=== PATIENT | male | born 1995 | race Caucasian/White ===

== ENCOUNTER 2024-03-07 13:56 | Outpatient (REF) | payer BC, SELFPAY ==
[2024-03-07 14:06] LABS: MANUAL DIFF FLAG NO
[2024-03-07 14:10] LABS: Basophils Absolute Auto 0.1 X10*3/uL (0.0-0.2); Basophils Percent Auto 1.2 % (0-2); Eosinophils Absolute Auto 0.2 X10*3/uL (0.0-0.4); Eosinophils Percent Auto 3.7 % (0-4); Hematocrit 42.5 % (42.0-52.0); Hemoglobin 14.7 g/dl (14.0-18.0); Imm Gran Abs Auto 0.01 X10*3/uL (0.00-0.03); Imm Gran Pct Auto 0.2 % (0.0-0.4); Lymphocytes Absolute Auto 2.4 X10*3/uL (1.2-4.9); Lymphocytes Percent Auto 40.5 % (20-40); Mean Corpuscular HGB Conc 34.6 g/dl (31.0-36.0); Mean Corpuscular Hemoglobin 30.9 pg (27.0-33.0); Mean Corpuscular Volume 89.3 fL (80.0-98.0); Mean Platelet Volume 10.7 fL (9.4-12.4); Monocytes Absolute Auto 0.6 X10*3/uL (0.1-1.2); Monocytes Percent Auto 10.7 % (2-11); Neutrophils Absolute Auto 2.6 x10*3/uL (2.0-8.3); Neutrophils Percent Auto 43.7 % (45-73); Platelet Count 287 X10*3/uL (160-400); Red Blood Count 4.76 X10*6/uL (4.60-5.80); Red Cell Distribution Width 12.4 % (11.0-16.0); White Blood Count 5.9 X10*3/uL (4.8-10.8)
[2024-03-07 14:13] LABS: Appearance Urine Clear; Color Urine Yellow; Glucose Urine UA Negative (Negative); Leukocyte Esterase Urine Negative (Negative); Nitrite Urine Negative (Negative); Specific Gravity - Urine >= 1.030 (1.005-1.025); Urine Blood Negative (Negative); Urine Ketones Trace mg/dL (Negative); Urine Protein Trace mg/dL (Neg-Trace)
[2024-03-07 14:15] LABS: Bacteria Urine None Seen (None Seen); Hyaline Casts Urine 0-2 /LPF (0-2); RBC Urine 0-2 /HPF (0-2); Squamous Epithelial Cell Urine 0-2 /HPF (0-2); WBC Urine 0-5 /HPF (0-5)
[2024-03-07 14:38] LABS: Alanine Aminotransferase 16 U/L (0-40); Albumin Level 4.8 g/dL (3.5-5.0); Alkaline Phosphatase 64 U/L (39-117); Anion Gap 11 (12-20); Aspartate Amino Transferase 16 U/L (5-37); Bilirubin Total 0.7 mg/dL (0.0-1.0); Blood Urea Nitrogen 15 mg/dL (9-16); Calcium 9.6 mg/dL (8.4-10.2); Carbon Dioxide 27 mmol/L (22-29); Chloride 106 mmol/L (96-108); Cholesterol 152 mg/dL (<200); Estimated Glomerular Filt Rate > 60; Glucose Fasting 97 mg/dL (60-99); HDL Cholesterol 40 mg/dL (>40); LDL Cholesterol Calculated 101 mg/dL (<100); Potassium 4.2 mmol/L (3.3-5.1); Sodium 140 mmol/L (135-145); Total Protein 7.8 g/dL (6.5-8.0); Triglycerides 56 mg/dL (<150)
[2024-03-07 14:51] LABS: TSH reflex Free T4 0.84 uIU/mL (0.32-4.0)
== END 2024-03-07 13:57 | disposition home or self-care (01) ==
LOC: HO.LNP 13:56
PROVIDERS: Visit Provider Internal Medicine
DX: R63.4 Abnormal weight loss (principal)
CPT/HCPCS: 80053; 80061; 81001; 84443; 85025

== ENCOUNTER → 2024-08-29 10:33 | Outpatient (BNVA) | payer OTHER, SELFPAY | PROVIDERS: Visit Provider Registered Nurse | DX: S46.811A Strain of other muscles, fascia and tendons at shoulder and upper arm level, right arm, initial encounter (principal); S39.012A Strain of muscle, fascia and tendon of lower back, initial encounter; V89.0XXA Person injured in unspecified motor-vehicle accident, nontraffic, initial encounter | CPT/HCPCS: 99203 ==

== ENCOUNTER → 2024-09-01 13:07 | Outpatient (BNVA) | payer OTHER, SELFPAY | PROVIDERS: PCP Internal Medicine; Visit Provider Physician Assistant Medical | DX: S46.811A Strain of other muscles, fascia and tendons at shoulder and upper arm level, right arm, initial encounter (principal); S39.012A Strain of muscle, fascia and tendon of lower back, initial encounter; V89.0XXA Person injured in unspecified motor-vehicle accident, nontraffic, initial encounter | CPT/HCPCS: 99213 ==

== ENCOUNTER → 2024-09-06 11:52 | Outpatient (BNVA) | payer OTHER, SELFPAY | PROVIDERS: PCP Internal Medicine; Visit Provider Physician Assistant | DX: S39.012A Strain of muscle, fascia and tendon of lower back, initial encounter (principal); V89.0XXA Person injured in unspecified motor-vehicle accident, nontraffic, initial encounter | CPT/HCPCS: 99214 ==

== ENCOUNTER → 2024-09-21 09:07 | Outpatient (BNVA) | payer OTHER, SELFPAY | PROVIDERS: PCP Internal Medicine; Visit Provider Physician Assistant | DX: S39.012D Strain of muscle, fascia and tendon of lower back, subsequent encounter (principal); V89.0XXD Person injured in unspecified motor-vehicle accident, nontraffic, subsequent encounter | CPT/HCPCS: 99213 ==

== ENCOUNTER → 2024-09-25 11:06 | Outpatient (BNVA) | payer OTHER, SELFPAY | PROVIDERS: PCP Internal Medicine; Visit Provider Physician Assistant Medical | DX: S39.012D Strain of muscle, fascia and tendon of lower back, subsequent encounter (principal); V89.0XXD Person injured in unspecified motor-vehicle accident, nontraffic, subsequent encounter; Z02.79 Encounter for issue of other medical certificate | CPT/HCPCS: 99213 ==

== ENCOUNTER 2024-10-18 09:00 | Outpatient (RCR) | payer OTHER, BC, SELFPAY ==
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
--- NOTE | 2024-09-25 10:56 | MHC.PT.OD ---
[facility] [place] Office [place] Office [place] Office [address]deep [address] [phone] F: [phone] F: [phone] F: [phone] F: [phone] Physical Therapy Daily Note Diagnosis: R TRAPEZIUS STRAIN, R LUMBAR STRAIN Date of Surgery: NA Date of Evaluation: 08/30/24 Date of Treatment: 09/25/24 Treatments to Date: 5 Cancellations to Date: No Shows to Date: Authorized Visits: Insurance End Date: Precautions/ Contraindications:NONE SPECIFIED Subjective: Pt states he has a follow up at [facility] today, hopes to be cleared for RTW but states he is interested in doing a few more sessions of PT to strengthen. Has not yet returned to running or higher level exercise. Has done gentle leg press and core exercises from PT at home. Pain Score and Location: 3 R LB/glut Objective Flowsheet: Tests & Measures PT EVAL Exercises Seated on bike with MHP applied x 10 minutes level 3.0 (post stretches) prone hip ext over pball x 2 set 10R, prone UE raises x 2 sets 10R; prone UE/LE raises x 2 sets 10R; Kneeling hip flexor x 30 sec hold, SL hip abductor in SL x 10R each with core stab with 8lb med ball, figure 4 in SL with one knee over the chest x 4R, SKTC/piriformis stretch x 4R x 20 sec hold, SL open books x 4R each side, SL figure 4 trunk rotation x 4R, child pose stretch fwd/laterally x 4R each, verbal review of minor stretch over foam roller x 5 minutes, AAROM cane flexion in supine x 10 sec hold x 2 sets 5R., child pose stretches x 4R fwd/laterall, standing hip abd with GTB around ankles for lateral steps in standing position, standing hip abd steps with GTB around thigh x 2 sets 10R, standing wall squat with gtb around thigh with 3000gram med ball chest press, prone plank x 20 sec hold on forearms x 5 sec hold, review of AAROM cane flexion in supine with education re: self care for teres musculature self care to improve thoracic mobility/UE mobility/trunk ROM. Education to refrain from pushing into pain, avoidance of sx. Education re: avoidance of deep squats, rotary torso, -lifting. ENcouragement for walk<>jog program in small short intervals for prepare for jog<>running. Discussed performance of wearing vest/gear for wall squats/ gentle hip abd in standing to prep for movements/RTW/activity. Two I strips applied in lumbar/trunk flexion stretch with third I strip midline<>horizontally. Education re: application removal. ED RE EVAL FINDINGS/RX PLAN, ED RE MH Modalities Seated on bike with MHP for active warm-up x 10 minutes Assessment: 09/25/24: Pt was progressed in higher level stabilization/core/hip work today with good tolerance with issued written HEP. Positive education how to progress this for home. He is challenged in his hip abductors R>L. Pt is scheduled to see [facility] today for another follow up. 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 He has not yet resumed jogging or running. He did express mild soreness/fatigue in his R lower back vs his L during session. Positive response and compliance reported. 09/21/24:Pt cancelled appt. Pt was scheduled to see [facility] today. 09/18/24; Positive response to stretching program. Pt has [facility] follow up on 09/21/23. 09/11/24: Positive response to pec minor stretch. Held manual STM educated re: reintegration of gym activities to tolerance with respect to sx and goals. Pt to have follow up with [facility] 09/21/23. THORACIC KYPHOSIS. WAS FEELING GOOD UNTIL RTW. MAY BENEFIT FROM 2X/WK (VS ORIGINAL PLAN OF 1X/WK SINCE SXS HAVE RECURRED WITH RTW) PT Plan: Assess/await outcome of [facility] visit. Short Term Goals: 1. INCREASED AWARENESS POSTURE AND BACK CARE 2. Pt TO PERF 2-3 TASKS WITH PROPER BODY MECH 3. I HEP WITH DC EX PLAN Non Destructive Evaluation Manager Goals: 1. RTW 2. RETURN TO GYM 3. DECREASED R LBP TO 1-2/10 AT WORST 4. MMT R HIP ER 5/5 Electronically signed by: Dianelys Alvarenga, PT, DPT
--- NOTE | 2024-10-18 09:38 | MHC.PT.DC ---
[facility] [place] Office [place] Office [place] Office [address] Gurdeep Long 140 [facility] [phone] F: [phone] F: [phone] F: [phone] F: [phone] Physical Therapy Discharge Report Diagnosis: R TRAPEZIUS STRAIN, R LUMBAR STRAIN Date of Surgery: NA Date of Evaluation: 08/30/24 Date of Discharge: 10/18/24 Treatments to Date: 10 Cancellations to Date: No Shows to Date: Discharge Status: Achieved Goals Improved Function Independent with HEP Discharge Summary: R HIP ER STRENGTH=5/5 HAS MET PT GOALS. Electronically signed by: MERCED MACIEL PT Please sign and return to therapist. Thank you for your referral.
== END 2024-10-18 09:38 | disposition home or self-care (01) ==
LOC: HO.PTWFD 09:00
PROVIDERS: PCP Internal Medicine; Visit Provider Physician Assistant Medical
DX: S39.012D Strain of muscle, fascia and tendon of lower back, subsequent encounter (principal)
CPT/HCPCS: 97110; 97140; 97161; 97530; 97535

== ENCOUNTER 2024-11-03 13:56 | Outpatient (AMB) | payer OTHER, SELFPAY ==
--- OUTSIDE RECORDS SUMMARY | 2024-11-03 13:59 | XMS_ITS | Encounter Summary ---
Author Organization [facility] Address [address] [place] [phone] Phone Care Team Providers Care Carry In Worker Name Role Phone Unavailable Primary Care Provider Unavailabl e Encounter Details Date Type Department Care Team (Late st Contact Info) Description 02/06/2018 Conversion Encounter [facility] [address] [address] Social History Tobacco Use Types Packs/Day Years Used Date Smoking Tobacco: Never Assessed Sex and Gender Information Value Date Recorded Sex Assigned at Not on file Legal Sex Male 6:23 PM EDT Gender Identity Not on file Sexual Orientation Not on file documented as of this encounter Plan of Treatment Not on file documented as of this encounter Visit Diagnoses Not on filedocumented in this encounter
--- OUTSIDE RECORDS SUMMARY | 2024-11-03 13:59 | XMS_ITS ---
Author Organization Harley Hartmann MD Address [address] [facility] [address] [place] [phone] Care Team Providers Care Lens Maker Name Role Phone Harley Hartmann Primary Care Provider [phone] Allergies No Known Allergies REASON FOR VISIT 3 month Encounters Encounter Location Date Provider Diagnosis Harley Hartmann MD [address] [place] [address] [place] [id number] 08/11/2024 Harley Hartmann Plan Of Treatment Next Appt Details Provider Name:Harley Jimenez ieharpreet, 10/05/2025 07:30:00 AM, [address] [place] [address], [address] [place] [address], [phone], Provider Name:Harley gutierrez, 10/12/2025 08:00:00 AM, [address] [place] [address], [address] [place] [address], [phone], Progress Notes * RUBÉN EGAN RDOB:[birth year] (29 yo M)Acc No.[id number]:08/11/2024 Progress Notes Patient:?RUBÉN EGAN Provider:?Harley Hartmann MD :1995???Age:29 Y???Sex:Male Nhan e:08/11/2024 Address:[address] [place] [place], [place] Subjective: * Chief Complaints: * ???1. 3 month. * ROS:?General/Constitutional:?Denies?Chills.?Denies?Fatigue.?Denies?Fever.?Denies?Headache.?ENT:?Denies?Sore throat.?Respiratory:?Denies?Cough.?Denies?Shortness of breath at rest.?Denies?Shortness of breath with exertion.?Gastrointestinal:?Denies?Diarrhea.?Denies?Nausea.? * Medical History:?Medical His tory Verified. * Allergies:?N.K.D.A. Objective: * Vitals:? Assessment: Plan: * Treatment: * * The named appointment provid er may or may not be the originator of this progress note, and it is not deemed complete until electronically signed by the appointment provider. Sign off status: Pending * Provider:?Harley Hartmann MD Date:?1 10/11/2023 Generated for Chyna carey/Carlos/Diamond on:?11/03/2024 01:59 PM EST
--- OUTSIDE RECORDS SUMMARY | 2024-11-03 13:59 | XMS_ITS | Patient Health Record ---
Author Organization Harley Hartmann MD Address [address] [place], [place] [phone] Care Team Providers Care Metal Baler Name Role Phone Harley Hartmann Primary Care Provider [phone] Allergies No Known Allergies Results Component Value Reference Range Notes Complete Blood Count Auto Di ff Reviewed date:03/09/2024 05:23:53 PM Interpretation: Performing Lab:[facility], [address] [place] [phone] Notes/Report: White Blood Count 5.9 4.8-10.8 X10*3/uL Red Blood Count 4.76 4.60-5.80 X10*6/uL Hemoglobin 14.7 14.0-18.0 g/dl Hematocrit 42.5 42.0-52.0 % Mean Corpuscular Volume 89.3 80.0-98.0 fL Mean Corpuscular Hemoglobin 30.9 27.0-33.0 pg Mean Corpuscular HGB Conc 34.6 31.0-36.0 g/dl Red Cell Distribution Width 12.4 11.0-16.0 % Platelet Count 287 160-400 X10*3/uL Mean Platelet Volume 10.7 9.4-12.4 fL Neutrophils Percent Auto 43.7 45-73 % Imm Gran Pct Auto 0.2 0.0-0.4 % Lymphocytes Percent Auto 40.5 20-40 % Monocytes Percent Auto 10.7 2-11 % Eosinophils Percent Auto 3.7 0-4 % Basophils Percent Auto 1.2 0-2 % NRBC Pct Auto 0.0 0.0-0.2 /100WBC Neutrophils Absolute Auto 2.6 2.0-8.3 x10*3/u L Imm Gran Abs Auto 0.01 0.00-0.03 X10*3/uL Lymphocytes Absolute Auto 2.4 1.2-4.9 X10*3/u L Monocytes Absolute Auto 0.6 0.1-1.2 X10*3/uL Eosinophils Absolute Auto 0.2 0.0-0.4 X10*3/u L Basophils Absolute Auto 0.1 0.0-0.2 X10*3/uL NRBC Abs Auto 0.000 0.0-0.012 X10*3/uL Urinalysis and Microscopic Reviewed date:03/09/2024 05:22:43 PM Interpretation: Performing Lab:[facility], [address] [place] [phone] Notes/Report: Color Urine Yellow Appearance Urine Clear PH 6.0 5.0-9.0 Glucose Urine UA Negative Negative mg/dL Urine Blood Negative Negative Specific [place] - Urine >= 1.030 1.005-1.025 Urine Protein Trace Neg-Trace mg/dL Urine Ketones Trace Negative mg/dL Nitrite Urine Negative Negative Leukocyte Esterase Urine Negative Negative RBC Urine 0-2 0-2 /HPF WBC Urine 0-5 0-5 /HPF Squamous Epithelial Cell Urine 0-2 0-2 /HPF Bacteria Urine None Seen None Seen Hyaline Casts Urine 0-2 0-2 /LPF Comprehensive [place]. Panel Fa Reviewed date:03/09/2024 05:20:15 PM Interpretation: Performing Lab:[facility], [address] [place] [phone] Notes/Report: Sodium 140 135-145 mmol/L Potassium 4.2 3.3-5.1 mmol/L Chloride 106 96-108 mmol/L Carbon Dioxide 27 22-29 mmol/L Anion Gap 11 12-20 Blood Urea Nitrogen 15 9-16 mg/dL Creatinine 1.31 0.5-1.4 mg/dL Estimated Glomerular Filt Rate > 60 NOTE: For -[place] individuals, multiply the result by 1.210. Chronic Kidney Disease: Estimated GFR < 60 mL/min/1.73m2 Severe Kidney Disease: Estimated GFR < 15 mL/min/1.73m2 Glucose Fasting 97 60-99 mg/dL Calcium 9.6 8.4-10.2 mg/dL Bilirubin Total 0.7 0.0-1.0 mg/dL Aspartate Amino Transferase 16 5-37 U/L Alanine Aminotransferase 16 0-40 U/L Total Protein 7.8 6.5-8.0 g/dL Albumin Level 4.8 3.5-5.0 g/dL Alkaline Phosphatase 64 39-117 U/L Lipid Panel Reviewed date:03/09/2024 05:13:30 PM Interpretation: Performing Lab:[address] [phone] Notes/Report: Triglycerides 56 <150 mg/dL Desirable Triglyceride: less than 150 mg/dL Borderline High Triglyceride 150-199 mg/dL High Triglyceride: 200-499 mg/dL Very High Triglyceride: greater than or equal to 5OO mg/dL Cholesterol 152 <200 mg/dL Desirable Cholesterol: less than 200 mg/dL Borderline High Cholesterol: 200-239 mg/dL High Cholesterol: greater than 239 mg/dL LDL Cholesterol Calculated 101 <100 mg/dL Desirable LDL: less than 100 mg/dL Near Optimal/Above Optimal LDL: 110-129 mg/dL Borderline High LDL: 130-159 mg/dL High LDL: 160-189 mg/dL Very High LDL: greater than or equal to 190 mg/dL HDL Cholesterol 40 >40 mg/dL Desirable HDL: greater than 40 mg/dL Note: This HDL assay may give artificially low results in patients with liver disease. TSH reflex Free T4 Reviewed date:03/09/2024 05:13:20 PM Interpretation: Performing Lab:[address] [phone] Notes/Report: TSH reflex Free T4 0.84 0.32-4.0 uIU/mL Hold Gold Reviewed date:03/09/2024 02:30:45 PM Interpretation: Performing Lab:[address] [phone] Notes/Report: Hold Gold See Note Specimen held untested for 24 hours; Call to request Chemistry testing. Reason For Referral Reason Hordeolim externum o f left upper eyelid Diagnosis 1 Hordeolum externum o f left upper eyelid (H00.014) Referral Organization Harley Hartmann MD Referring Provider First Name Harley Referring Provider Last Name Mary Kate Referring Provider Speciality Internal M edicine Referred Provider Sukumar Zaldivar Referred Provider Specialty Ophthalmolog y General Notes Kathie Thayer 02:44:16 PM EDT > info faxed [phone] npi [phone] Flaca,Kathie 04/03/2024 03:21:30 PM EDT > referral mailed to patient Referral Priority Routine Referral Appointment Date 04/27/2024 Medications Medication SIG (Take, Route, Frequency, Duration) Notes Start Date End Date Status Hyoscyamine Sulfate ER 0.375 MG 1 tablet Orally once a day for 30 days 04/06/2024 Not-Taking Omeprazole 20 MG 1 capsule 30 minutes before morning meal Orally Once a day for 30 day(s) 03/07/2024 Not-Taking Social History Tobacco Use: Social History Observation Description Date Details (start date - stop date) Never Smoker NA - NA Tobacco Use/Smoking Question Answer Notes Patient is a nonsmoker Additional Findings: Tobacco Non-User Cu rrent non-smoker, currently using no form of tobacco Alcohol Screen Question Answer Notes Did you have a drink contain ing alcohol in the past year? Yes How many drinks did you have on a typical day when you were drinking in the past year? 1 or 2 drinks (0 point) How often did you have 6 or more drinks on one occasion in the past year? Never (0 point) Points 0 Interpretation Negative Problems Problem Type SNOMED Code ICD Code Onset Dates Problem Status W/U Status Risk Notes Problem 43028036 Irritable bowel syndrome, unspecified type (K58.9) Active confirmed Problem 331174664 Weight loss, unintentional (R63.4) Active confirmed Vital Signs Blood pressure diastolic 76 mm Hg 10/20/2024 Height 75 in 10/20/2024 Blood pressure systolic 112 mm Hg 10/20/2024 Weight 179 lbs 10/20/2024 BMI 22.37 kg/m2 10/20/2024 Encounters Encounter Location Date Provider Diagnosis Harley Hartmann MD [address] [place] [address] [address] [place] [id number] 03/07/2024 Harley Hartmann Weight loss, unintentional R63.4 and Hordeolum externum of left upper eyelid H00.014 Harley Hartmann MD [address] [place] [address] [address] [place] [id number] 04/06/2024 Harley Hartmann Weight loss, unintentional R63.4 and Irritable bowel syndrome, unspecified type K58.9 Harley Hartmann MD [address] [place] [id number] 05/11/2024 Harley Hartmann Irritable bowel syndrome, unspecified type K58.9 Harley Hartmann MD [address] [id number] 10/20/2024 Harley Hartmann Irritable bowel syndrome, unspecified type K58.9 Harley Hartmann MD [address] [place] [id number] 05/29/2024 Harley Hartmann MD [address] [facility] [address] [id number] 08/10/2024 Harley Hartmann MD [address] [place] [address] [id number] 08/25/2024 Harley Hartmann Assessments Encounter Date Diagnosis (ICD Code) Assessment Notes Treatment Notes Treatment Clinical Notes Section Notes 03/07/2024 Weight loss, unintentional (ICD-10 - R63.4) patient verbalized understandingof medication and directins for use. pending labs, Total time spent on the date of the encounter is 45 minutes including both face to face time spent and time spent reviewing documentation and counseling the patient. 03/07/2024 Hordeolum externum of left upper eyelid (ICD-10 - H00.014) referral to dr bauer 04/06/2024 Weight loss, unintentional (ICD-10 - R63.4) has maintained wait since last visit, will continue to monitor 04/06/2024 Irritable bowel syndrome, unspecified type (ICD-10 - K58.9) patient verbalized understanding of medication and directions for use 05/11/2024 Irritable bowel syndrome, unspecified type (ICD-10 - K58.9) pending diagnostic testing 10/20/2024 Irritable bowel syndrome, unspecified type (ICD-10 - K58.9) doing great on no meds.will continue to monitor Plan Of Treatment Pending Test Test Name Order Date XR GI SERIES 05/11/2024 Next Appt Details Provider Name:Harley Jimenez ier, 10/05/2025 07:30:00 AM, [address] [facility], [address], [place], [place], [phone], Provider Name:Harley gutierrez, 10/12/2025 08:00:00 AM, [address] [facility], [address], [place], [place], [phone], Insurance Providers Payer Name Payer Address Payer Phone Subscriber Number Group Number Insured Name Patient Relationship to Insured Coverage Start Date Coverage End Date [employer]UE [employer]UE [facility] [address] [place], [place] [id number] RUBÉN KAISER Self - patient is the insured
--- OUTSIDE RECORDS SUMMARY | 2024-11-03 13:59 | XMS_ITS | Encounter Summary ---
Author Organization [facility] Address [address] [place] [address] Phone Care Team Providers Care River Transportation Worker Name Role Phone Unavailable Primary Care Provider Unavailabl e Encounter Details Date Type Department Care Team (Late st Contact Info) Description 10/25/2009 Documentation [facility] Family Medicine [address] [place] [address] Family Medicine, Physician [address] [place] [address] Social History Tobacco Use Types Packs/Day Years [...]
--- OUTSIDE RECORDS SUMMARY | 2024-11-03 13:59 | XMS_ITS ---
Author Organization Harley Hartmann MD Address 10 [facility] [address] [place] [phone] Care Team Providers Care Dry Mill Operator Name Role Phone Harley Hartmann Primary Care Provider [phone] REASON FOR VISIT ER Visit rec'd Encounters Encounter Location Date Provider Diagnosis Harley Hartmann MD [address] [place] [address] [address] [place], [place] [phone] 08/25/2024 Harley Hartmann Plan Of Treatment Next Appt Details Provider Name:Harley Jimenez ier, 10/05/2025 07:30:00 AM, [address] [place] [address], Suite [facility], [place], [place], [phone], Provider Name:Harley Jimenez ier, 10/12/2025 08:00:00 AM, [address] [place] [address], [place] [address], [place], [place], [phone], Progress Notes * RUBÉN EGAN RDOB:[birth year] (29 yo M)Acc No.[id number]:08/25/2024 Patient:?RUBÉN EGAN :1995???Age:29 Y???Sex:Male Address:[address] [place], [address] * true * Date:? Generated for Printi ng/Faxing/eTransmitting on:?11/03/2024 01:58 PM EST
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
--- OUTSIDE RECORDS SUMMARY | 2024-11-03 13:59 | XMS_ITS | Clinical Summary ---
Author Organization [facility] Address [address] [place] [phone] Phone Care Team Providers Care Technology Teacher Name Role Phone Unavailable Primary Care Provider Unavailabl e Immunizations Immunization Administration Dates Next Due DTaP 05/04/2001, 7,1996,09/27,1996 Hep B, ped/adol 02/26/1997,1996,1996 Hib (PRP-T) 08/27/1997, 7,1996,07/28 Influenza, injectable, quadr ivalent, preservative free 06/03/2011 MMR 05/29/2007,05/04/2001 Meningococcal Conj (Menactra) MCV4P 04/26/2013,1 09/27/2006 OPV 05/04/2001, 7,1996,07/28 Tdap 07/28/2007 Varicella 07/28/2007,08/27/1997 Family History Relation Name Status Comments Father Alive healthy age: 43 Maternal Grandmother Biolog[employer] chris mat. grandmother with breast CA diagnosed with MALIGNANT NEOPLASM NOS Mother Alive healthy age: 41 Other Alive Siblings: healt hy Social History Tobacco Use Types Packs/Day Years Used Date Smoking Tobacco: Never Assessed Sex and Gender Information Value Date Recorded Sex Assigned at Not on file Legal Sex Male 6:23 PM EDT Gender Identity Not on file Sexual Orientation Not on file Last Filed Vital Signs Vital Sign Reading Time Taken Comments Blood Pressure 112/62 07/17/2014 12:00 AM EDT Pulse - - Temperature 37 ??C (98.6 ??F) 07/17/2014 12: 00 AM EDT Respiratory Rate - - Oxygen Saturation - - Inhaled Oxygen Concentration - - Weight 63.4 kg (139 lb 12.8 oz) 014 12:00 AM EDT Height 186.7 cm (6' 1.5 ) 07/17/2014 12 :00 AM EDT Body Mass Index 18.19 07/17/2014 12:00 AM EDT Plan of Treatment Health Maintenance Due Date Last Done Comments DTaP,Tdap,and Td Vaccines (7 - Td or Tdap) 07/28/2017 07/28/2007, 05/04/2001, 08/27/1997, Additional history exists Influenza Vaccines (#1) 2024 06/03/2011 COVID-19 Vaccine ( season) 2024 Hepatitis B Vaccines Completed 02/26/1997, 1996, 1996 HIB Vaccines Completed 08/27/1997, 11/18, 1996, Additional history exists IPV Vaccines Completed 05/04/2001, 11/18, 1996, Additional history exists MMR Vaccines Completed 05/29/2007, 05/04/2001 Varicella Vaccines Completed 07/28/2007, 08/27/1997 Meningococcal Vaccine Completed 04/26/2013, 007 HPV Vaccines Aged Out No longer eligi ble based on patient's age to complete this topic Hepatitis A Vaccines Aged Out No long er eligible based on patient's age to complete this topic Men B Vaccine Aged Out No longer elig ible based on patient's age to complete this topic Pneumococcal Vaccine Aged Out No long er eligible based on patient's age to complete this topic
[2024-11-03 14:15] VITALS: BP 143/89; PULSE 101; O2SAT 98; BMI 22.6
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
== END 2024-11-03 14:38 | disposition home or self-care (01) ==
PROVIDERS: PCP Internal Medicine; Visit Provider Registered Nurse Emergency
DX: M79.18 Myalgia, other site (principal); T14.8XXA Other injury of unspecified body region, initial encounter; M54.9 Dorsalgia, unspecified
CPT/HCPCS: 99204; G2211

== ENCOUNTER → 2024-11-03 13:56 | Outpatient (BNVA) | payer OTHER, SELFPAY | PROVIDERS: PCP Internal Medicine; Visit Provider Registered Nurse Emergency | DX: M79.18 Myalgia, other site (principal); T14.8XXA Other injury of unspecified body region, initial encounter; M54.50 Low back pain, unspecified | CPT/HCPCS: 99202 ==

== ENCOUNTER → 2025-01-30 13:57 | Outpatient (BNVA) | payer OTHER, SELFPAY | PROVIDERS: PCP Internal Medicine; Visit Provider Physician Assistant Medical | DX: S39.012D Strain of muscle, fascia and tendon of lower back, subsequent encounter (principal); V89.0XXD Person injured in unspecified motor-vehicle accident, nontraffic, subsequent encounter; M53.3 Sacrococcygeal disorders, not elsewhere classified | CPT/HCPCS: 99213 ==

== ENCOUNTER 2025-02-07 07:00 | Outpatient (RCR) | payer OTHER, BC, SELFPAY ==
--- NOTE | 2025-02-01 13:13 | MHC.PT.EP ---
[facility] [place] Office [place] Office [place] Office [address] [phone] F: [phone] F: [phone] F: [phone] F: [phone] Physical Therapy Plan of Care Date of Evaluation: 02/01/25 Date of Surgery: Diagnosis: right sided lumbar pain, right SI pain Assessment: Patient is a 29 year old R handed male who presents with s/s consistent with R sided low back pain, R SI pain. He works with daily job demands including [employer]. Patient past medical history is unremarkable. Current impairments include pain, flexibility, ROM, strength, activity tolerance and functional mobility. Functional limitations include decreased ability to sit, stand, drive, bend and lift. Patient is motivated with good rehab potential. Skilled PT will address impairments and functional limitations in order to achieve goals. Frequency and Duration: The patient will be seen 2x/week for 5 weeks Short Term Goals: I with HEP - 2 weeks TTP absent - 3 weeks Full pain free AROM - 3 weeks Nurseryperson Goals: 90/90 lacking < 25 b/l - 5 weeks Oswestry 10% or less - 5 weeks Full return to all activities 1/10 max pain - 5 weeks Treatment Plan: Modalities to reduce pain, spasms and effusion. Manual therapy to restore motion and function. Therapeutic exercise to improve strength and flexibility. Neuromuscular re-education for posture and balance. Therapeutic activities to return to functional activities of daily living. Electronically signed by: Raghu Freire, PT Please sign and return to therapist. Thank you for your referral.
--- NOTE | 2025-03-30 08:25 | MHC.PT.DC ---
[facility] [place] Office [place] Office [place] Office [address] Gurdeep Long [address] [phone] F: [phone] F: [phone] F: [phone] F: [phone] Physical Therapy Discharge Report Diagnosis: right sided lumbar pain, right SI pain Date of Surgery: Date of Evaluation: 02/01/25 Date of Discharge: Treatments to Date: 2 Cancellations to Date: No Shows to Date: Discharge Status: Independent with HEP Patient Elected to Stop Discharge Summary: 02/07/25: pt has been feeling better overall with skilled PT and rest. we will hold at this time until follow up with WC and he will call if he needs more. Patient is a 29 year old R handed male who presents with s/s consistent with R sided low back pain, R SI pain. He works with daily job demands including [employer]. Patient past medical history is unremarkable. Current impairments include pain, flexibility, ROM, strength, activity tolerance and functional mobility. Functional limitations include decreased ability to sit, stand, drive, bend and lift. Patient is motivated with good rehab potential. Skilled PT will address impairments and functional limitations in order to achieve goals. Electronically signed by: Raghu Freire, PT Please sign and return to therapist. Thank you for your referral.
== END 2025-03-30 08:26 | disposition home or self-care (01) ==
LOC: HO.PTCHIC 07:00
PROVIDERS: PCP Internal Medicine; Visit Provider Physician Assistant Medical
DX: S39.012D Strain of muscle, fascia and tendon of lower back, subsequent encounter (principal)
CPT/HCPCS: 97014; 97110; 97161

== ENCOUNTER → 2025-02-13 10:43 | Outpatient (BNVA) | payer OTHER, SELFPAY | PROVIDERS: PCP Internal Medicine; Visit Provider Physician Assistant Medical | DX: S39.012D Strain of muscle, fascia and tendon of lower back, subsequent encounter (principal); V89.0XXD Person injured in unspecified motor-vehicle accident, nontraffic, subsequent encounter; Z02.79 Encounter for issue of other medical certificate | CPT/HCPCS: 99213 ==

== ENCOUNTER → 2025-04-03 10:58 | Outpatient (BNVA) | payer OTHER, SELFPAY | PROVIDERS: PCP Internal Medicine; Visit Provider Physician Assistant Medical | DX: S46.811D Strain of other muscles, fascia and tendons at shoulder and upper arm level, right arm, subsequent encounter (principal); V89.0XXD Person injured in unspecified motor-vehicle accident, nontraffic, subsequent encounter; M53.3 Sacrococcygeal disorders, not elsewhere classified; Z02.79 Encounter for issue of other medical certificate | CPT/HCPCS: 99213 ==

== ENCOUNTER → 2025-04-24 09:56 | Outpatient (BNVA) | payer OTHER, SELFPAY | PROVIDERS: PCP Internal Medicine; Visit Provider Physician Assistant Medical | DX: S39.012D Strain of muscle, fascia and tendon of lower back, subsequent encounter (principal); V89.0XXD Person injured in unspecified motor-vehicle accident, nontraffic, subsequent encounter; M53.3 Sacrococcygeal disorders, not elsewhere classified | CPT/HCPCS: 99213 ==

== ENCOUNTER 2025-05-24 08:00 | Outpatient (RCR) | payer OTHER, BC, SELFPAY | END 2025-06-18 08:25 | disposition home or self-care (01) | LOC: HO.PT 08:00 | PROVIDERS: PCP Internal Medicine; Visit Provider Physician Assistant Medical | DX: M25.512 Pain in left shoulder (principal); S46.012A Strain of muscle(s) and tendon(s) of the rotator cuff of left shoulder, initial encounter | CPT/HCPCS: 97110; 97140; 97162; 97530; 97535 ==

== ENCOUNTER → 2025-05-24 09:02 | Outpatient (BNVA) | payer OTHER, SELFPAY | PROVIDERS: PCP Internal Medicine; Visit Provider Physician Assistant Medical | DX: S39.012D Strain of muscle, fascia and tendon of lower back, subsequent encounter (principal); V89.0XXD Person injured in unspecified motor-vehicle accident, nontraffic, subsequent encounter; M53.3 Sacrococcygeal disorders, not elsewhere classified; Z02.79 Encounter for issue of other medical certificate | CPT/HCPCS: 99213 ==